=== PATIENT | male | born 1935 | race Caucasian/White ===

== ENCOUNTER 2020-05-20 14:27 | Inpatient (IN) | payer MEDICARE, MEDICAID ==
[2020-05-20] MEDS ORDERED: Sodium Chloride 0.9% 10 ML Syringe FLUSH PRN ×2 (14:28→16:41)
--- NOTE | 2020-05-20 14:38 | EDM.PDOC ---
ED HPI GENERAL MEDICAL PROBLEM - General Chief Complaint: Respiratory Problem Stated Complaint: SOB VIA [facility] Time Seen by Provider: 05/20/20 14:30 Source of Information: Reports: Patient, EMS, Family, Old Records History Limitations: Reports: Other (patient not able to offer any significant hx) - History of Present Illness INITIAL COMMENTS - FREE TEXT/NARRATIVE: 84 yo male with a pHx of COPD presents via EMS for SOB that began today. He arrives via EMS with oxygen per mask. He has not been running a fever. He has a cough, but this is chronic. No known exposures. EMS gave albuterol via neb with transient mild benefit. He apparently has not been eating for the past week. No reported chest pain. Has a pHx of surgery for a AAA. No pHx of CHF. Onset: Gradual Onset Date: 05/14/20 Duration: Week(s): (1 week, much worse breathing today.), Getting Worse Location: Reports: Chest Quality: Reports: Other (no pain) Severity: Moderate Improves with: Reports: Other (oxygen) Worsens with: Reports: Other (unsure) Context: Reports: Other (See HPI) Associated Symptoms: Reports: Cough (chronic), Loss of Appetite, Shortness of Breath. Denies: Chest Pain, Fever/Chills Treatments [employer]: Reports: Oxygen, Other (see below) (albuterol neb) - Related Data Allergies Allergy/AdvReac Type Severity Reaction Status Date / Time venom-honey bee Allergy Anaphylactic Verified 05/20/20 14:34 [bee venom (honey bee)] Shock Home Meds: Home Meds Aspirin [Ecotrin EC] 81 mg PO DAILY 05/11/14 [History] Levothyroxine 112 mcg PO ACBRK 05/11/14 [History] NIFEdipine [Adalat cc] 90 mg PO DAILY 05/11/14 [History] atorvaSTATin [Lipitor] 40 mg PO DAILY 05/11/14 [History] Tamsulosin [Tamsulosin 24 Hr] 0.8 mg PO DAILY 05/20/20 [History] Past Medical History Cardiovascular History: Reports: Aneurysm (Aortic), Hypertension Other Cardiovascular History: Aortic Anuerysm Respiratory History: Reports: SOB Gastrointestinal History: Reports: Bowel Obstruction Musculoskeletal History: Reports: Back Pain, Chronic, Gout Neurological History: Reports: TIA Other Neuro History: Forgetful Endocrine/Metabolic History: Reports: Hypothyroidism, Other (See Below) Other Endocrine/Metabolic History: thyroid disease Dermatologic History: Reports: Decubitus Ulcer - Infectious Disease History Infectious Disease History: Reports: Chicken Pox, Measles, Mumps - Past Surgical History Cardiovascular Surgical History: Reports: AAA Repair ED ROS GENERAL - Review of Systems Review Of Systems: See Below Constitutional: Reports: Malaise, Decreased Appetite. Denies: Fever HEENT: Reports: No Symptoms Respiratory: Reports: Shortness of Breath, Wheezing, Cough. Denies: Pleuritic Chest Pain, Sputum, Hemoptysis Cardiovascular: Reports: No Symptoms Endocrine: Reports: No Symptoms GI/Abdominal: Reports: Anorexia, Decreased Appetite : Reports: No Symptoms Musculoskeletal: Reports: No Symptoms Skin: Reports: No Symptoms Neurological: Reports: No Symptoms Psychiatric: Reports: Other (lethargy) ED EXAM, GENERAL - Physical Exam Exam: See Below Exam Limited By: No Limitations General Appearance: Alert, WD/WN, Mild Distress, Obese Eye Exam: Bilateral Eye: Normal Inspection Ears: Normal External Exam, Normal Canal, Hearing Grossly Normal, Normal TMs Ear Exam: Bilateral Ear: Auricle Normal, Canal Normal, TM normal Nose: Normal Inspection, No Blood Throat/Mouth: Normal Inspection, Normal Lips, Normal Oropharynx, Normal Voice, No Airway Compromise Head: Atraumatic, Normocephalic Neck: Normal Inspection, Supple, Non-Tender Respiratory/Chest: No Accessory Muscle Use, Chest Non-Tender, Respiratory Distress, Rhonchi, Wheezing. No: No Respiratory Distress, Lungs Clear, Normal Breath Sounds, Accessory Muscle Use Cardiovascular: Regular Rate, Rhythm GI/Abdominal: Normal Bowel Sounds, Soft, Non-Tender, No Distention, Other (obese, large ventral surgical scar well healed) Extremities: Normal Inspection, Normal Range of Motion, Non-Tender, Pedal Edema (trace pitting edema of both legs below the knees.). No: No Pedal Edema Neurological: CN II-XII Intact, No Motor/Sensory Deficits, Slow to Respond, Other (lethargic) Psychiatric: Depressed Mood, Flat Affect Skin Exam: Warm, Dry, Intact, Normal Color, No Rash #1 Interpretation EKG Date: 05/20/20 Time: 14:20 Rhythm: A-Fib Rate (Beats/Min): 134 [place]: Normal P-Wave: Absent QRS: Normal ST-T: Normal QT: Prolonged Comparison: Change From Previous EKG (change from NSR to afib with RVR) Course - Vital Signs Text/Narrative:: Dr. Dan called @ 4787h, will see in ER Last Recorded V/S: Last Vital Signs Temp 36.4 C 05/20/20 14:27 Pulse 100 05/20/20 15:07 Resp 24 H 05/20/20 15:07 BP 94/58 L 05/20/20 15:07 Pulse Ox 86 L 05/20/20 15:07 - Orders/Labs/Meds Orders: Active Orders 24 hr Category Date Time Status Cardiac Monitoring [RC] .As Directed Care 05/20/20 14:28 Active EKG Documentation Completion [RC] ASDIRECTED Care 05/20/20 14:28 Active Wynn Catheter Insertion [Insert Urinary Catheter] [OM. Care 05/20/20 15:00 Ordered PC] Q24H Oxygen Therapy Adult [Oxygen Therapy, ED] [RC] Care 05/20/20 14:36 Active ASDIRECTED RT Aerosol Therapy [RC] ASDIRECTED Care 05/20/20 14:59 Active Urinary Catheter Assessment [RC] ASDIRECTED Care 05/20/20 14:59 Active Chest 1V Frontal [CR] Stat Exams 05/20/20 14:28 Taken UA W/MICROSCOPIC [URIN] Stat Lab 05/20/20 14:29 Ordered Sodium Chloride 0.9% [Saline Flush] Med 05/20/20 14:28 Active 10 ml FLUSH ASDIRECTED PRN Saline Lock Insert [OM.PC] Routine Oth 05/20/20 14:28 Ordered EKG 12 Lead [EK] Routine Ther 05/20/20 14:28 Ordered Medication Orders Sodium Chloride (Saline Flush) 10 ml FLUSH ASDIRECTED PRN PRN Reason: Keep Vein Open Labs: Laboratory Tests 05/20/20 05/20/20 05/20/20 Range/Units 14:38 14:40 14:40 WBC 10.7 (4.5-11.0) K/uL RBC 5.00 (4.30-5.90) M/uL Hgb 14.3 D (12.0-15.0) g/dL Hct 47.3 (40.0-54.0) % MCV 95 (80-98) fL MCH 29 (27-31) pg MCHC 30 L (32-36) % Plt Count 311 (150-400) K/uL D-Dimer, Quantitative (0.0-500.0) ng/mL Puncture Site Lt.radial ABG pH 7.261 L (7.350-7.450) ABG pCO2 80.3 H* (35.0-42.0) mmHg ABG pO2 70.8 L (75.0-100.0) mmHg ABG HCO3 34.9 H (22.0-26.0) mmol/L ABG Total CO2 31.8 H (23.0-27.0) mmol/L ABG O2 Saturation 91.4 L (95.0-98.0) % ABG O2 Content 18.0 (15.0-23.0) %vol ABG Base Excess 5.1 mm/L ABG Hemoglobin 14.3 (13.5-18.0) g/dL ABG Oxyhemoglobin 89.5 % ABG Carboxyhemoglobin 1.2 (0.0-1.6) % ABG Methemoglobin 0.9 % Christiano Test Passed O2 Delivery Device Non rebr mask Oxygen Flow Rate 3.0 L Sodium 137 L (140-148) mmol/L Potassium 4.6 (3.6-5.2) mmol/L Chloride 98 L (100-108) mmol/L Carbon Dioxide 34 H (21-32) mmol/L Anion Gap 9.6 (5.0-14.0) mmol/L BUN 17 (7-18) mg/dL Creatinine 1.2 (0.8-1.3) mg/dL Est Cr Clr Drug Dosing TNP Estimated GFR (MDRD) 58 L (>60) Glucose 155 H (74-106) mg/dL Calcium 8.2 L (8.5-10.1) mg/dL Troponin I < 0.017 (0.000-0.056) ng/mL NT-Pro-B Natriuret Pep 4717 H (5-450) pg/mL SARS CoV-2 RNA Rapid ANTONY 05/20/20 05/20/20 Range/Units 14:50 15:00 WBC (4.5-11.0) K/uL RBC (4.30-5.90) M/uL Hgb (12.0-15.0) g/dL Hct (40.0-54.0) % MCV (80-98) fL MCH (27-31) pg MCHC (32-36) % Plt Count (150-400) K/uL D-Dimer, Quantitative 2125.48 H (0.0-500.0) ng/mL Puncture Site ABG pH (7.350-7.450) ABG pCO2 (35.0-42.0) mmHg ABG pO2 (75.0-100.0) mmHg ABG HCO3 (22.0-26.0) mmol/L ABG Total CO2 (23.0-27.0) mmol/L ABG O2 Saturation (95.0-98.0) % ABG O2 Content (15.0-23.0) %vol ABG Base Excess mm/L ABG Hemoglobin (13.5-18.0) g/dL ABG Oxyhemoglobin % ABG Carboxyhemoglobin (0.0-1.6) % ABG Methemoglobin % Christiano Test O2 Delivery Device Oxygen Flow Rate L Sodium (140-148) mmol/L Potassium (3.6-5.2) mmol/L Chloride (100-108) mmol/L Carbon Dioxide (21-32) mmol/L Anion Gap (5.0-14.0) mmol/L BUN (7-18) mg/dL Creatinine (0.8-1.3) mg/dL Est Cr Clr Drug Dosing Estimated GFR (MDRD) (>60) Glucose (74-106) mg/dL Calcium (8.5-10.1) mg/dL Troponin I (0.000-0.056) ng/mL NT-Pro-B Natriuret Pep (5-450) pg/mL SARS CoV-2 RNA Rapid ANTONY Negative Meds: Medications Generic Name Dose Route Start Last Admin Trade Name Freq PRN Reason Stop Dose Admin Sodium Chloride 10 ml 05/20/20 14:28 Saline Flush FLUSH ASDIRECTED PRN Keep Vein Open Discontinued Medications Generic Name Dose Route Start Last Admin Trade Name Freq PRN Reason Stop Dose Admin Albuterol/Ipratropium 3 ml 05/20/20 14:59 Duoneb 3.0-0.5 Mg/3 Ml NEB 05/20/20 15:00 ONETIME ONE Digoxin 500 mcg 05/20/20 14:58 Lanoxin IVPUSH 05/20/20 14:59 ONETIME ONE Furosemide 40 mg 05/20/20 15:19 Lasix IVPUSH 05/20/20 15:20 ONETIME ONE - Radiology Interpretation Free Text/Narrative:: CXR-bilateral pleural effusions Departure - Departure Time of Disposition: 15:50 Disposition: Admitted As Inpatient 66 Condition: Serious Clinical Impression: Pleural effusion, bilateral, Hypoxia, Carbon dioxide retention, Bronchospasm, Atrial fibrillation with RVR - Discharge Information *PRESCRIPTION DRUG MONITORING PROGRAM REVIEWED*: Not Applicable *COPY OF PRESCRIPTION DRUG MONITORING REPORT IN PATIENT LARA: Not Applicable Referrals: PCP,None [Primary Care Provider] - Forms: ED Department Discharge Sepsis Event Note (ED) - Focused Exam Vital Signs: Vital Signs Temp Pulse Resp BP Pulse Ox 05/20/20 15:07 100 24 H 94/58 L 86 L 05/20/20 14:52 138 H 27 H 110/66 87 L 05/20/20 14:27 36.4 C 116 H 25 H 102/72 86 L - My Orders Last 24 Hours: My Active Orders 05/20/20 14:28 Cardiac Monitoring [RC] .As Directed EKG Documentation Completion [RC] ASDIRECTED Chest 1V Frontal [CR] Stat Sodium Chloride 0.9% [Saline Flush] 10 ml FLUSH ASDIRECTED PRN Saline Lock Insert [OM.PC] Routine EKG 12 Lead [EK] Routine 05/20/20 14:29 UA W/MICROSCOPIC [URIN] Stat 05/20/20 14:36 Oxygen Therapy Adult [Oxygen Therapy, ED] [RC] ASDIRECTED 05/20/20 14:59 RT Aerosol Therapy [RC] ASDIRECTED Urinary Catheter Assessment [RC] ASDIRECTED 05/20/20 15:00 Wynn Catheter Insertion [Insert Urinary Catheter] [OM.PC] Q24H - Assessment/Plan Last 24 Hours: My Active Orders 05/20/20 14:28 Cardiac Monitoring [RC] .As Directed EKG Documentation Completion [RC] ASDIRECTED Chest 1V Frontal [CR] Stat Sodium Chloride 0.9% [Saline Flush] 10 ml FLUSH ASDIRECTED PRN Saline Lock Insert [OM.PC] Routine EKG 12 Lead [EK] Routine 05/20/20 14:29 UA W/MICROSCOPIC [URIN] Stat 05/20/20 14:36 Oxygen Therapy Adult [Oxygen Therapy, ED] [RC] ASDIRECTED 05/20/20 14:59 RT Aerosol Therapy [RC] ASDIRECTED Urinary Catheter Assessment [RC] ASDIRECTED 05/20/20 15:00 Wynn Catheter Insertion [Insert Urinary Catheter] [OM.PC] Q24H
[2020-05-20] MEDS ORDERED: Digoxin 500 MCG/2 ML Amp IVPUSH ONE (14:58)
[2020-05-20] MEDS ORDERED: Albuterol/Ipratropium 3.0-0.5 MG/3 ML Neb Soln NEB ONE (14:59)
[2020-05-20] MEDS ORDERED: Furosemide 40 MG/4 ML VIAL IVPUSH ONE (15:19)
[2020-05-20] MEDS ORDERED: Iopamidol 612 MG/ML 100 ML Bottle IV SCH (15:45)
--- NOTE | 2020-05-20 15:45 | PCM.HP.2 ---
H&P History of Present Illness - General Date of Service: 05/20/20 Admit Problem/Dx: Admission Diagnosis/Problem Admission Diagnosis/Problem Hypoxia Source of Information: Patient, Provider, RN Notes Reviewed History Limitations: Reports: No Limitations - History of Present Illness Initial Comments - Free Text/Narative: Mr. Moreau and through the emergency department with increased shortness of breath secondary to acute on chronic hypoxic and hypercapnic respiratory failure. He has a known history of COPD and is on supplemental oxygen 3 L/min via nasal cannula at home. He reports that he has become progressively more short of breath over the last month but it has been significantly worse this week. He has had a productive cough but denies fever or chills. Because of severe shortness of breath today he presented to the emergency department for further evaluation and was brought in by EMS. On arrival he had good oxygenation on supplemental oxygen, but blood gases did show significant hypercapnia with associated respiratory acidosis. Chest x-ray shows hypoventilation with bilateral pleural effusions. He was also found to be in atrial fibrillation with rapid ventricular response and has no prior history of this that he is aware of. He has received IV furosemide and IV digoxin while in the emergency department. Follow-up blood gases show persistent although improved hypercapnia with an oxygen saturation of 88%. - Related Data Allergies/Adverse Reactions: Allergies Allergy/AdvReac Type Severity Reaction Status Date / Time venom-honey bee Allergy Anaphylactic Verified 05/20/20 14:34 [bee venom (honey bee)] Shock Home Medications: Home Meds Aspirin [Ecotrin EC] 81 mg PO DAILY 05/11/14 [History] Levothyroxine 112 mcg PO ACBRK 05/11/14 [History] NIFEdipine [Adalat cc] 90 mg PO DAILY 05/11/14 [History] atorvaSTATin [Lipitor] 40 mg PO DAILY 05/11/14 [History] Tamsulosin [Tamsulosin 24 Hr] 0.8 mg PO DAILY 05/20/20 [History] Past Medical History HEENT History: Reports: Impaired Vision Cardiovascular History: Reports: Aneurysm, High Cholesterol, Hypertension Other Cardiovascular History: Aortic Anuerysm Respiratory History: Reports: COPD, SOB, Other (See Below) Other Respiratory History: Continuous O2 at 3l Gastrointestinal History: Reports: Bowel Obstruction Musculoskeletal History: Reports: Back Pain, Chronic, Gout Neurological History: Reports: TIA Other Neuro History: Forgetful Psychiatric History: Reports: Depression Endocrine/Metabolic History: Reports: Hypothyroidism, Other (See Below) Other Endocrine/Metabolic History: thyroid disease Dermatologic History: Reports: Decubitus Ulcer - Infectious Disease History Infectious Disease History: Reports: Chicken Pox, Measles, Mumps - Past Surgical History HEENT Surgical History: Reports: Tonsillectomy Cardiovascular Surgical History: Reports: AAA Repair GI Surgical History: Reports: Colon Social & Family History - Tobacco Use Tobacco Use Status *Q: Former Tobacco User Years of Tobacco use: 60 Packs/Tins Daily: 1 Used Tobacco, but Quit: Yes Month/Year Tobacco Last Used: 1963 Second Hand Smoke Exposure: No - Caffeine Use Caffeine Use: Reports: Coffee - Alcohol Use Days Per Week of Alcohol Use: 0 - Recreational Drug Use Recreational Drug Use: No H&P Review of Systems - Review of Systems: Review Of Systems: See Below General: Reports: Malaise, Weakness, Fatigue, Decreased Appetite. Denies: Fever, Chills HEENT: Reports: No Symptoms Pulmonary: Reports: Shortness of Breath, Wheezing, Cough, Sputum. Denies: Pleuritic Chest Pain, Hemoptysis Cardiovascular: Reports: Dyspnea on Exertion. Denies: Chest Pain, Palpitations, Orthopnea, PND, Edema, Lightheadedness Gastrointestinal: Reports: No Symptoms Genitourinary: Reports: No Symptoms Musculoskeletal: Reports: No Symptoms Skin: Reports: Erythema (In the groin right greater than left) Psychiatric: Reports: No Symptoms Neurological: Reports: No Symptoms Hematologic/Lymphatic: Reports: No Symptoms Immunologic: Reports: No Symptoms Exam - Exam Exam: See Below - Vital Signs Vital Signs: Last Vital Signs Temp 97.5 F 05/20/20 14:27 Pulse 121 H 05/20/20 15:39 Resp 24 H 05/20/20 15:07 BP 94/58 L 05/20/20 15:07 Pulse Ox 86 L 05/20/20 15:07 Weight: 218 lb - Exam Quality Assessment: Supplemental Oxygen, DVT Prophylaxis General: Alert, Oriented, Cooperative, Moderate Distress HEENT: Conjunctiva Clear, Hearing Intact, Mucosa Moist & [place], Normal Nasal Se ptum, Posterior Pharynx Clear, Pupils Equal Neck: Supple, Trachea Midline, +2 Carotid Pulse wo Bruit Lungs: Decreased Breath Sounds, Rhonchi, Wheezing. No: Crackles, Rales Cardiovascular: Normal S1, Normal S2, Irregular Rhythm, Tachycardia. No: Systolic Murmur, Diastolic Murmur GI/Abdominal Exam: Soft, Non-Tender, No Organomegaly, No Distention Extremities: Non-Tender, No Pedal Edema Skin: Rash (Erythema groin consistent with yeast dermatitis) Neurological: Cranial Nerves Intact, Strength Equal Bilateral, Normal Speech, Normal Tone, Sensation Intact. No: Focal Deficit Neuro Extensive - Mental Status: Alert, Oriented x3, Normal Mood/Affect, Normal Cognition, Memory Intact - Patient Data Lab Results Last 24 hrs: Laboratory Results - last 24 hr 05/20/20 05/20/20 05/20/20 Range/Units 14:38 14:40 14:40 WBC 10.7 (4.5-11.0) K/uL RBC 5.00 (4.30-5.90) M/uL Hgb 14.3 D (12.0-15.0) g/dL Hct 47.3 (40.0-54.0) % MCV 95 (80-98) fL MCH 29 (27-31) pg MCHC 30 L (32-36) % Plt Count 311 (150-400) K/uL D-Dimer, Quantitative (0.0-500.0) ng/mL Puncture Site Lt.radial ABG pH 7.261 L (7.350-7.450) ABG pCO2 80.3 H* (35.0-42.0) mmHg ABG pO2 70.8 L (75.0-100.0) mmHg ABG HCO3 34.9 H (22.0-26.0) mmol/L ABG Total CO2 31.8 H (23.0-27.0) mmol/L ABG O2 Saturation 91.4 L (95.0-98.0) % ABG O2 Content 18.0 (15.0-23.0) %vol ABG Base Excess 5.1 mm/L ABG Hemoglobin 14.3 (13.5-18.0) g/dL ABG Oxyhemoglobin 89.5 % ABG Carboxyhemoglobin 1.2 (0.0-1.6) % ABG Methemoglobin 0.9 % Christiano Test Passed O2 Delivery Device Non rebr mask Oxygen Flow Rate 3.0 L Sodium 137 L (140-148) mmol/L Potassium 4.6 (3.6-5.2) mmol/L Chloride 98 L (100-108) mmol/L Carbon Dioxide 34 H (21-32) mmol/L Anion Gap 9.6 (5.0-14.0) mmol/L BUN 17 (7-18) mg/dL Creatinine 1.2 (0.8-1.3) mg/dL Est Cr Clr Drug Dosing TNP Estimated GFR (MDRD) 58 L (>60) Glucose 155 H (74-106) mg/dL Calcium 8.2 L (8.5-10.1) mg/dL Troponin I < 0.017 (0.000-0.056) ng/mL NT-Pro-B Natriuret Pep 4717 H (5-450) pg/mL SARS CoV-2 RNA Rapid ANTONY 05/20/20 05/20/20 Range/Units 14:50 15:00 WBC (4.5-11.0) K/uL RBC (4.30-5.90) M/uL Hgb (12.0-15.0) g/dL Hct (40.0-54.0) % MCV (80-98) fL MCH (27-31) pg MCHC (32-36) % Plt Count (150-400) K/uL D-Dimer, Quantitative 2125.48 H (0.0-500.0) ng/mL Puncture Site ABG pH (7.350-7.450) ABG pCO2 (35.0-42.0) mmHg ABG pO2 (75.0-100.0) mmHg ABG HCO3 (22.0-26.0) mmol/L ABG Total CO2 (23.0-27.0) mmol/L ABG O2 Saturation (95.0-98.0) % ABG O2 Content (15.0-23.0) %vol ABG Base Excess mm/L ABG Hemoglobin (13.5-18.0) g/dL ABG Oxyhemoglobin % ABG Carboxyhemoglobin (0.0-1.6) % ABG Methemoglobin % Christiano Test O2 Delivery Device Oxygen Flow Rate L Sodium (140-148) mmol/L Potassium (3.6-5.2) mmol/L Chloride (100-108) mmol/L Carbon Dioxide (21-32) mmol/L Anion Gap (5.0-14.0) mmol/L BUN (7-18) mg/dL Creatinine (0.8-1.3) mg/dL Est Cr Clr Drug Dosing Estimated GFR (MDRD) (>60) Glucose (74-106) mg/dL Calcium (8.5-10.1) mg/dL Troponin I (0.000-0.056) ng/mL NT-Pro-B Natriuret Pep (5-450) pg/mL SARS CoV-2 RNA Rapid ANTONY Negative Result Diagrams: 05/20/20 14:40 05/20/20 14:40 Sepsis Event Note - Focused Exam Vital Signs: Vital Signs Temp Pulse Pulse Resp BP Pulse Ox 05/20/20 15:39 121 H 05/20/20 15:07 100 24 H 94/58 L 86 L 05/20/20 14:52 138 H 27 H 110/66 87 L 05/20/20 14:27 97.5 F 116 H 25 H 102/72 86 L *Q Meaningful Use (ADM) - VTE Risk Assess *Q Each Risk Factor Represents 1 Point: Obesity ( BMI > 25 kg/m2), Abnormal Pulmonary Function (COPD) Total Score 1 Point Risk Factors: 2 Each Risk Factor Represents 2 Points: None Total Score 2 Point Risk Factors: 0 Each Risk Factor Represents 3 Points: Age 75 Years or Greater Total Score 3 Point Risk Factors: 3 Each Risk Factor Represents 5 Points: None Total Score 5 Point Risk Factors: 0 Venous Thromboembolism Risk Factor Score *Q: 5 Problem List Initiated/Reviewed/Updated: Yes Orders Last 24hrs: Active Orders 24 hr Category Date Time Status Patient Status Manage Transfer [TRANSFER] Routine ADT 05/20/20 15:38 Ordered Cardiac Monitoring [RC] .As Directed Care 05/20/20 14:28 Active EKG Documentation Completion [RC] ASDIRECTED Care 05/20/20 14:28 Active Wynn Catheter Insertion [Insert Urinary Catheter] [OM. Care 05/20/20 15:00 Ordered PC] Q24H Oxygen Therapy Adult [Oxygen Therapy, ED] [RC] Care 05/20/20 14:36 Active ASDIRECTED RT Aerosol Therapy [RC] ASDIRECTED Care 05/20/20 14:59 Active Urinary Catheter Assessment [RC] ASDIRECTED Care 05/20/20 14:59 Active Ang Chest [CT] Stat Exams 05/20/20 15:37 Ordered Chest 1V Frontal [CR] Stat Exams 05/20/20 14:28 Taken BLOOD GAS ARTERIAL [BG] Stat Lab 05/20/20 15:35 Ordered UA W/MICROSCOPIC [URIN] Stat Lab 05/20/20 14:29 Ordered Iopamidol [Isovue-300 (61%)] Med 05/20/20 15:45 Ordered 100 ml IV . DIRECTED Sodium Chloride 0.9% [Normal Saline] 100 ml Med 05/20/20 15:45 Ordered IV ASDIRECTED Sodium Chloride 0.9% [Saline Flush] Med 05/20/20 14:28 Active 10 ml FLUSH ASDIRECTED PRN Sodium Chloride 0.9% [Saline Flush] Med 05/20/20 15:42 Once 10 ml FLUSH ONETIME ONE Saline Lock Insert [OM.PC] Routine Oth 05/20/20 14:28 Ordered Resuscitation Status Routine Resus Stat 05/20/20 15:40 Ordered EKG 12 Lead [EK] Routine Ther 05/20/20 14:28 Ordered Medication Orders Sodium Chloride (Normal Saline) 100 mls @ 3 mls/sec IV ASDIRECTED MARIVEL Iopamidol (Isovue-300 (61%)) 100 ml IV . DIRECTED MARIVEL Sodium Chloride (Saline Flush) 10 ml FLUSH ASDIRECTED PRN PRN Reason: Keep Vein Open Sodium Chloride (Saline Flush) 10 ml FLUSH ONETIME ONE Stop: 05/20/20 15:43 Assessment/Plan Comment:: ASSESSMENT AND PLAN ACUTE ON CHRONIC HYPOXIC AND HYPERCAPNIC RESPIRATORY FAILURE-history of progressive dyspnea over the past month, significantly worse over the past few days. Does have underlying COPD on supplemental oxygen 3 L/min via nasal cannula. Bilateral pleural effusions noted on chest x-ray, no prior history of congestive heart failure. Likely is experiencing COPD exacerbation with bilateral expiratory wheezes noted on exam. Question underlying pulmonary edema versus infection. -CT angiogram of the chest, rule out PE evaluate for infiltrate versus edema -BiPAP and supplemental oxygen, maintain saturations in the range of 88 to 91% -Follow-up arterial blood gases with BiPAP and in a.m. -IV furosemide given in the ED, reassess in a.m. -Nebulizer therapy with albuterol and DuoNebs -Solu-Medrol 40 mg IV every 6 hours -Blood cultures pending -Echocardiogram to assess for left ventricular function and valvular status -IV Zosyn and levofloxacin, pending culture results and CT scan COPD-probable exacerbation -Management as above ATRIAL FIBRILLATION WITH RAPID VENTRICULAR RESPONSE-likely secondary to respiratory compromise, question underlying heart failure. Control improved with use of digoxin in the emergency department. Borderline blood pressure precludes use of beta-blockers or diltiazem at the present time -Echo as above -Digoxin level in a.m. -Consider long-term anticoagulation PALLIATIVE CARE-he does not want intubation or mechanical ventilation if he experiences further respiratory compromise. In the event of progressive respiratory failure he would like to be kept comfortable. MAINTENANCE ISSUES -DVT prophylaxis; Lovenox 40 mg subcu daily -GI prophylaxis; not indicated -Wynn catheter; not indicated -Nutrition; 2 g sodium diet -Nicotine dependence; not required CODE STATUS-DNR/DNI ADMISSION STATUS-patient will be admitted to inpatient status, expect at least a 2 night hospital stay for evaluation and management of problems as outlined above. At the time of this admission I do not reasonably expected evaluation and management of this problem will require more than a 96 hour hospital stay. DISPOSITION-anticipate discharge to home after the hospital stay. - Mortality Measure Prognosis:: Poor
[2020-05-20] MEDS: Sodium Chloride 0.9% 10 ML Syringe FLUSH ONE ×2 (15:46→15:56)
[2020-05-20] MEDS ORDERED: Polyethylene Glycol 3350 Powder 17 GM Packet PO PRN (16:41)
[2020-05-20] MEDS ORDERED: Acetaminophen 325 MG Tab PO PRN (16:41)
[2020-05-20] MEDS ORDERED: Ondansetron 4 MG/2 ML SDV IV PRN (16:41)
[2020-05-20] MEDS ORDERED: Albuterol 0.083% 2.5 MG/3 ML Neb Soln NEB PRN (16:41)
[2020-05-20] MEDS ORDERED: Enoxaparin 40 MG/0.4 ML Syringe SUBCUT SCH (17:00)
[2020-05-20] MEDS ORDERED: Levofloxacin/Dextrose 5%-Water 750 MG in Premix Bag 1 BAG IV SCH (17:00)
[2020-05-20] MEDS: Sodium Chloride 0.9% 100 ML IV SCH ×2 (17:09→18:40)
[2020-05-20] MEDS ORDERED: Iopamidol 755 Mg/ML 100 ML Bottle IV SCH (17:15)
[2020-05-20] MEDS: Lactobacillus Rhamnosus GG (Probiotic) Cap PO SCH ×2 (17:26→21:25)
[2020-05-20] MEDS: Albuterol/Ipratropium 3.0-0.5 MG/3 ML Neb Soln NEB SCH ×2 (17:27→21:25)
[2020-05-20] MEDS: methylPREDNISolone Sodium Succinate 40 MG/1 ML SDV IVPUSH SCH ×2 (17:27→21:25)
[2020-05-20] MEDS: Piperacillin/Tazobactam/Dext 3.375 GM in Premix Bag 1 BAG IV SCH ×2 (17:28→21:25)
[2020-05-20] MEDS: Nystatin Topical Powder 15 GM Bottle TOP SCH ×2 (17:40→21:25)
--- NOTE | 2020-05-20 17:54 | CRLCT ---
INDICATION: Hypoxic and hypercapnic respiratory failure TECHNIQUE: Contrast enhanced axial CT imaging through the chest, optimized for assessment of the pulmonary arterial tree. 100 mL Isovue 370 contrast agent was administered intravenously. Sagittal and coronal reconstructions are provided. COMPARISON: None FINDINGS: There is adequate opacification of the pulmonary arterial tree without evidence of thromboembolism. The main pulmonary artery is nonenlarged. There is mild cardiomegaly. There is no pericardial effusion. The ascending thoracic aorta is ectatic, measuring up to 4.5 cm in diameter. There is mild mediastinal lymphadenopathy. There are moderate-sized bilateral pleural effusions, slightly larger on the right. Moderate compressive atelectasis is noted in the lung bases. There is also patchy consolidation involving the posterior right upper lobe. The thoracic osseous structures are unremarkable. No significant abnormality is demonstrated in the visualized upper abdomen. IMPRESSION: 1. Moderate-sized bilateral pleural effusions, slightly larger on the right. Moderate bibasilar atelectasis. Mild cardiomegaly. 2. Patchy posterior right upper lobe consolidation, concerning for pneumonia. Correlate clinically. 3. No evidence of pulmonary thromboembolism. 4. 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 Please note that all CT scans at this facility use dose modulation, iterative reconstruction, and/or weight-based dosing when appropriate to reduce radiation dose to as low as reasonably achievable. Dictated by Connie Henson MD @ May 20 2020 5:38PM Signed by Dr. Connie Henson @ May 20 2020 5:53PM
[2020-05-20] MEDS ORDERED: Diltiazem 100 MG in Sodium Chloride 0.9% 100 ML IV SCH (23:45)
[2020-05-20] MEDS ORDERED: Diltiazem 25 MG/5 ML SDV IVPUSH ONE (23:55)
[2020-05-21] MEDS ORDERED: Sodium Chloride 0.9% 250 ML IV SCH (00:30)
[2020-05-21] MEDS: methylPREDNISolone Sodium Succinate 40 MG/1 ML SDV IVPUSH SCH ×2 (03:43→10:07)
[2020-05-21] MEDS: Piperacillin/Tazobactam/Dext 3.375 GM in Premix Bag 1 BAG IV SCH ×2 (03:43→09:52)
[2020-05-21] MEDS: Nystatin Topical Powder 15 GM Bottle TOP SCH ×2 (06:05→09:52)
[2020-05-21] MEDS: Albuterol/Ipratropium 3.0-0.5 MG/3 ML Neb Soln NEB SCH ×2 (07:11→10:39)
[2020-05-21] MEDS ORDERED: Levothyroxine 112 MCG Tab PO SCH (07:30)
[2020-05-21] MEDS: Lactobacillus Rhamnosus GG (Probiotic) Cap PO SCH (08:12)
[2020-05-21] MEDS ORDERED: atorvaSTATin 20 MG Tab PO SCH (09:00)
[2020-05-21] MEDS ORDERED: Aspirin 81 MG Tab.EC PO SCH (09:00)
[2020-05-21] MEDS ORDERED: Tamsulosin 0.4 MG Cap.ER PO SCH (09:00)
--- NOTE | 2020-05-21 09:02 | CR ---
CHEST: Portable 05/20/2020 at 2:49 PM CLINICAL HISTORY:SOB COMPARISON:2014 FINDINGS: The heart is enlarged. Pulmonary vascular is mildly cephalized. There are bilateral pleural effusions. There are atherosclerotic changes in the aorta. There is some mild generalized interstitial prominence in the perihilar and lower lung regions. Impression: Cardiomegaly with mild vascular cephalization and bilateral pleural effusions suggests some CHF. There is some infiltrate or edema in the perihilar lower lobe regions greater on the right. Superimposed pneumonia or pneumonitis is not excluded.
--- NOTE | 2020-05-21 09:39 | PCM.PN ---
- General Info Date of Service: 05/21/20 Subjective Update: Mr. Moreau has improved significantly since admission and reports less shortness of breath. He has been on noninvasive positive pressure ventilation and he is hypercapnia has essentially resolved. We have attempted to maintain oxygen saturations in the range of 88 to 92%. [address] scan of the chest showed no evidence of pulmonary embolism, did document bilateral pleural effusions as well as a right lung infiltrate. Echocardiogram is ordered and pending this morning. He would like to be discharged home and I did explain to them that he is not medically ready for that yet, he is considering leaving AGAINST MEDICAL ADVICE. Functional Status: Reports: Tolerating Diet, Urinating - Review of Systems General: Reports: Weakness, Fatigue. Denies: Fever, Chills Pulmonary: Reports: Shortness of Breath, Cough, Sputum, Wheezing. Denies: Pleuritic Chest Pain, Hemoptysis Cardiovascular: Reports: Dyspnea on Exertion. Denies: Chest Pain, Palpitations, Orthopnea, PND, Edema, Lightheadedness Gastrointestinal: Reports: No Symptoms Genitourinary: Reports: No Symptoms - Patient Data Vitals - Most Recent: Last Vital Signs Temp 97.7 F 05/21/20 07:42 Pulse 82 05/21/20 09:00 Resp 20 05/21/20 09:00 BP 118/46 L 05/21/20 09:00 Pulse Ox 87 L 05/21/20 09:00 Weight - Most Recent: 229 lb 0.964 oz I&O - Last 24 Hours: Intake & Output 05/20/20 05/21/20 05/21/20 22:59 06:59 14:59 Intake Total 120 575 480 Output Total 220 175 Balance 120 355 305 Lab Results Last 24 Hours: Laboratory Results - last 24 hr 05/20/20 05/20/20 05/20/20 Range/Units 06:33 14:38 14:40 WBC 10.7 (4.5-11.0) K/uL RBC 5.00 (4.30-5.90) M/uL Hgb 14.3 D (12.0-15.0) g/dL Hct 47.3 (40.0-54.0) % MCV 95 (80-98) fL MCH 29 (27-31) pg MCHC 30 L (32-36) % Plt Count 311 (150-400) K/uL Neut % (Auto) (36-66) % Lymph % (Auto) (24-44) % [place] % (Auto) (2-6) % Eos % (Auto) (2-4) % Baso % (Auto) (0-1) % D-Dimer, Quantitative (0.0-500.0) ng/mL Puncture Site Lt radial Lt.radial ABG pH 7.350 7.261 L (7.350-7.450) ABG pCO2 65.6 H 80.3 H* (35.0-42.0) mmHg ABG pO2 58.0 L 70.8 L (75.0-100.0) mmHg ABG HCO3 35.3 H 34.9 H (22.0-26.0) mmol/L ABG Total CO2 31.7 H 31.8 H (23.0-27.0) mmol/L ABG O2 Saturation 89.1 L 91.4 L (95.0-98.0) % ABG O2 Content 16.6 18.0 (15.0-23.0) %vol ABG Base Excess 7.7 5.1 mm/L ABG Hemoglobin 13.6 14.3 (13.5-18.0) g/dL ABG Oxyhemoglobin 87.1 89.5 % ABG Carboxyhemoglobin 1.4 1.2 (0.0-1.6) % ABG Methemoglobin 0.9 0.9 % Christiano Test Passed Passed O2 Delivery Device Bipap Non rebr mask Oxygen Flow Rate 30.0 3.0 L Sodium (140-148) mmol/L Potassium (3.6-5.2) mmol/L Chloride (100-108) mmol/L Carbon Dioxide (21-32) mmol/L Anion Gap (5.0-14.0) mmol/L BUN (7-18) mg/dL Creatinine (0.8-1.3) mg/dL Est Cr Clr Drug Dosing Estimated GFR (MDRD) (>60) Glucose (74-106) mg/dL Calcium (8.5-10.1) mg/dL Magnesium (1.8-2.4) mg/dL Total Bilirubin (0.2-1.0) mg/dL AST (15-37) U/L ALT (12-78) U/L Alkaline Phosphatase (46-116) U/L Troponin I (0.000-0.056) ng/mL NT-Pro-B Natriuret Pep (5-450) pg/mL Total Protein (6.4-8.2) g/dL Albumin (3.4-5.0) g/dL Globulin (2.3-3.5) g/dL Albumin/Globulin Ratio (1.2-2.2) Digoxin (0.90-2.00) ng/mL SARS CoV-2 RNA Rapid ANTONY 05/20/20 05/20/20 05/20/20 Range/Units 14:40 14:50 15:00 WBC (4.5-11.0) K/uL RBC (4.30-5.90) M/uL Hgb (12.0-15.0) g/dL Hct (40.0-54.0) % MCV (80-98) fL MCH (27-31) pg MCHC (32-36) % Plt Count (150-400) K/uL Neut % (Auto) (36-66) % Lymph % (Auto) (24-44) % [place] % (Auto) (2-6) % Eos % (Auto) (2-4) % Baso % (Auto) (0-1) % D-Dimer, Quantitative 2125.48 H (0.0-500.0) ng/mL Puncture Site ABG pH (7.350-7.450) ABG pCO2 (35.0-42.0) mmHg ABG pO2 (75.0-100.0) mmHg ABG HCO3 (22.0-26.0) mmol/L ABG Total CO2 (23.0-27.0) mmol/L ABG O2 Saturation (95.0-98.0) % ABG O2 Content (15.0-23.0) %vol ABG Base Excess mm/L ABG Hemoglobin (13.5-18.0) g/dL ABG Oxyhemoglobin % ABG Carboxyhemoglobin (0.0-1.6) % ABG Methemoglobin % Christiano Test O2 Delivery Device Oxygen Flow Rate L Sodium 137 L (140-148) mmol/L Potassium 4.6 (3.6-5.2) mmol/L Chloride 98 L (100-108) mmol/L Carbon Dioxide 34 H (21-32) mmol/L Anion Gap 9.6 (5.0-14.0) mmol/L BUN 17 (7-18) mg/dL Creatinine 1.2 (0.8-1.3) mg/dL Est Cr Clr Drug Dosing TNP Estimated GFR (MDRD) 58 L (>60) Glucose 155 H (74-106) mg/dL Calcium 8.2 L (8.5-10.1) mg/dL Magnesium (1.8-2.4) mg/dL Total Bilirubin (0.2-1.0) mg/dL AST (15-37) U/L ALT (12-78) U/L Alkaline Phosphatase (46-116) U/L Troponin I < 0.017 (0.000-0.056) ng/mL NT-Pro-B Natriuret Pep 4717 H (5-450) pg/mL Total Protein (6.4-8.2) g/dL Albumin (3.4-5.0) g/dL Globulin (2.3-3.5) g/dL Albumin/Globulin Ratio (1.2-2.2) Digoxin (0.90-2.00) ng/mL SARS CoV-2 RNA Rapid ANTONY Negative 05/20/20 05/21/20 05/21/20 Range/Units 15:35 05:35 05:35 WBC 4.9 (4.5-11.0) K/uL RBC 4.53 (4.30-5.90) M/uL Hgb 13.3 (12.0-15.0) g/dL Hct 42.3 (40.0-54.0) % MCV 93 (80-98) fL MCH 29 (27-31) pg MCHC 31 L (32-36) % Plt Count 259 (150-400) K/uL Neut % (Auto) 93 H (36-66) % Lymph % (Auto) 6 L (24-44) % [place] % (Auto) 1 L (2-6) % Eos % (Auto) 0 L (2-4) % Baso % (Auto) 0 (0-1) % D-Dimer, Quantitative (0.0-500.0) ng/mL Puncture Site Rt.radial ABG pH 7.278 L (7.350-7.450) ABG pCO2 73.9 H* (35.0-42.0) mmHg ABG pO2 52.8 L (75.0-100.0) mmHg ABG HCO3 33.5 H (22.0-26.0) mmol/L ABG Total CO2 30.4 H (23.0-27.0) mmol/L ABG O2 Saturation 82.6 L (95.0-98.0) % ABG O2 Content 16.1 (15.0-23.0) %vol ABG Base Excess 4.4 mm/L ABG Hemoglobin 14.2 (13.5-18.0) g/dL ABG Oxyhemoglobin 80.8 % ABG Carboxyhemoglobin 1.4 (0.0-1.6) % ABG Methemoglobin 0.8 % Christiano Test Passed O2 Delivery Device Nasal cannula Oxygen Flow Rate 3.0 L Sodium (140-148) mmol/L Potassium (3.6-5.2) mmol/L Chloride (100-108) mmol/L Carbon Dioxide (21-32) mmol/L Anion Gap (5.0-14.0) mmol/L BUN (7-18) mg/dL Creatinine (0.8-1.3) mg/dL Est Cr Clr Drug Dosing Estimated GFR (MDRD) (>60) Glucose (74-106) mg/dL Calcium (8.5-10.1) mg/dL Magnesium (1.8-2.4) mg/dL Total Bilirubin (0.2-1.0) mg/dL AST (15-37) U/L ALT (12-78) U/L Alkaline Phosphatase (46-116) U/L Troponin I (0.000-0.056) ng/mL NT-Pro-B Natriuret Pep (5-450) pg/mL Total Protein (6.4-8.2) g/dL Albumin (3.4-5.0) g/dL Globulin (2.3-3.5) g/dL Albumin/Globulin Ratio (1.2-2.2) Digoxin 1.12 (0.90-2.00) ng/mL SARS CoV-2 RNA Rapid ANTONY 05/21/20 05/21/20 Range/Units 05:35 06:33 WBC (4.5-11.0) K/uL RBC (4.30-5.90) M/uL Hgb (12.0-15.0) g/dL Hct (40.0-54.0) % MCV (80-98) fL MCH (27-31) pg MCHC (32-36) % Plt Count (150-400) K/uL Neut % (Auto) (36-66) % Lymph % (Auto) (24-44) % [place] % (Auto) (2-6) % Eos % (Auto) (2-4) % Baso % (Auto) (0-1) % D-Dimer, Quantitative (0.0-500.0) ng/mL Puncture Site L radial ABG pH 7.463 H (7.350-7.450) ABG pCO2 44.5 H (35.0-42.0) mmHg ABG pO2 55.7 L (75.0-100.0) mmHg ABG HCO3 31.4 H (22.0-26.0) mmol/L ABG Total CO2 27.6 H (23.0-27.0) mmol/L ABG O2 Saturation 90.8 L (95.0-98.0) % ABG O2 Content 16.7 (15.0-23.0) %vol ABG Base Excess 7.1 mm/L ABG Hemoglobin 13.5 (13.5-18.0) g/dL ABG Oxyhemoglobin 88.2 % ABG Carboxyhemoglobin 2.0 H (0.0-1.6) % ABG Methemoglobin 0.9 % Christiano Test Pass O2 Delivery Device Nasal cannula Oxygen Flow Rate 3.0 L Sodium 137 L (140-148) mmol/L Potassium 4.6 (3.6-5.2) mmol/L Chloride 98 L (100-108) mmol/L Carbon Dioxide 30 (21-32) mmol/L Anion Gap 13.6 (5.0-14.0) mmol/L BUN 16 (7-18) mg/dL Creatinine 1.4 H (0.8-1.3) mg/dL Est Cr Clr Drug Dosing 34.12 Estimated GFR (MDRD) 48 L (>60) Glucose 145 H (74-106) mg/dL Calcium 8.0 L (8.5-10.1) mg/dL Magnesium 2.4 (1.8-2.4) mg/dL Total Bilirubin 0.7 (0.2-1.0) mg/dL AST 10 L (15-37) U/L ALT 21 (12-78) U/L Alkaline Phosphatase 73 (46-116) U/L Troponin I (0.000-0.056) ng/mL NT-Pro-B Natriuret Pep (5-450) pg/mL Total Protein 6.5 (6.4-8.2) g/dL Albumin 2.8 L (3.4-5.0) g/dL Globulin 3.7 H (2.3-3.5) g/dL Albumin/Globulin Ratio 0.8 L (1.2-2.2) Digoxin (0.90-2.00) ng/mL SARS CoV-2 RNA Rapid ANTONY Med Orders - Current: Current Medications Acetaminophen (Tylenol) 650 mg PO Q4H PRN PRN Reason: Pain (Mild 1-3)/fever Albuterol (Proventil Neb Soln) 2.5 mg NEB Q4H PRN PRN Reason: Shortness Of Breath/wheezing Last Admin: 05/21/20 00:46 Dose: 2.5 mg Documented by: Albuterol/Ipratropium (Duoneb 3.0-0.5 Mg/3 Ml) 3 ml NEB QIDRT [facility] Last Admin: 05/21/20 07:11 Dose: 3 ml Documented by: Aspirin (Halfprin) 81 mg PO DAILY [facility] Last Admin: 05/21/20 08:12 Dose: 81 mg Documented by: Atorvastatin Calcium (Lipitor) 40 mg PO DAILY [facility] Last Admin: 05/21/20 08:12 Dose: 40 mg Documented by: Diltiazem HCl (Cardizem) 30 mg PO Q6H [facility] Enoxaparin Sodium (Lovenox) 40 mg SUBCUT Q24H [facility] Last Admin: 05/20/20 17:27 Dose: 40 mg Documented by: Piperacillin/Tazobactam/ (Dextrose 3.375 gm/ Premix) 50 mls @ 100 mls/hr IV Q6H [facility] Last Admin: 05/21/20 03:43 Dose: 100 mls/hr Documented by: Sodium Chloride (Normal Saline) 250 mls @ 15 mls/hr IV ASDIRECTED [facility] Last Admin: 05/21/20 00:50 Dose: 15 mls/hr Documented by: Levofloxacin/Dextrose 750 mg/ (Premix) 150 mls @ 100 mls/hr IV Q48H [facility] Lactobacillus Rhamnosus (Culturelle) 1 cap PO BID [facility] Last Admin: 05/21/20 08:12 Dose: 1 cap Documented by: Levothyroxine Sodium (Levothyroxine) 112 mcg PO ACBREAKFAST [facility] Last Admin: 05/21/20 08:12 Dose: 112 mcg Documented by: Methylprednisolone Sodium Succinate (Solu-Medrol) 40 mg IVPUSH Q6H [facility] Last Admin: 05/21/20 03:43 Dose: 40 mg Documented by: Nystatin (Nystop) 0 gm TOP QID [facility] Last Admin: 05/21/20 06:05 Dose: 1 gm Documented by: Ondansetron HCl (Zofran) 4 mg IV Q4H PRN PRN Reason: Nausea/Vomiting Polyethylene Glycol (Miralax) 17 gm PO DAILY PRN PRN Reason: Constipation Sodium Chloride (Saline Flush) 10 ml FLUSH ASDIRECTED PRN PRN Reason: Keep Vein Open Last Admin: 05/20/20 18:40 Dose: 10 ml Documented by: Tamsulosin HCl (Flomax) 0.8 mg PO DAILY [facility] Last Admin: 05/21/20 08:12 Dose: 0.8 mg Documented by: Discontinued Medications Albuterol/Ipratropium (Duoneb 3.0-0.5 Mg/3 Ml) 3 ml NEB ONETIME ONE Stop: 05/20/20 15:00 Last Admin: 05/20/20 15:40 Dose: 3 ml Documented by: Digoxin (Lanoxin) 500 mcg IVPUSH ONETIME ONE Stop: 05/20/20 14:59 Last Admin: 05/20/20 15:39 Dose: 500 mcg Documented by: Diltiazem HCl (Diltiazem) 10 mg IVPUSH ONETIME ONE Stop: 05/20/20 23:56 Last Admin: 05/21/20 00:10 Dose: 10 mg Documented by: Furosemide (Lasix) 40 mg IVPUSH ONETIME ONE Stop: 05/20/20 15:20 Last Admin: 05/20/20 15:43 Dose: 40 mg Documented by: Sodium Chloride (Normal Saline) 100 mls @ 3 mls/sec IV ASDIRECTED [facility] Stop: 05/20/20 19:00 Last Admin: 05/20/20 18:40 Dose: 3 mls/sec Documented by: Levofloxacin/Dextrose 750 mg/ (Premix) 150 mls @ 100 mls/hr IV Q24H [facility] Last Admin: 05/20/20 17:27 Dose: 100 mls/hr Documented by: Diltiazem HCl 100 mg/ Sodium (Chloride) 100 mls @ 5 mls/hr IV TITRATE [facility]; Protocol Last Admin: 05/21/20 00:16 Dose: 5 mg/hr, 5 mls/hr Documented by: Iopamidol (Isovue-300 (61%)) 100 ml IV . DIRECTED [facility] Stop: 05/20/20 19:00 Iopamidol (Isovue-370 (76%)) 100 ml IV . DIRECTED [facility] Stop: 05/20/20 21:00 Last Admin: 05/20/20 18:40 Dose: 100 ml Documented by: Sodium Chloride (Saline Flush) 10 ml FLUSH ASDIRECTED PRN PRN Reason: Keep Vein Open Sodium Chloride (Saline Flush) 10 ml FLUSH ONETIME ONE Stop: 05/20/20 15:43 Last Admin: 05/20/20 15:56 Dose: 10 ml Documented by: - Exam General: Alert, Oriented, Cooperative, Mild Distress Lungs: Decreased Breath Sounds, Wheezing. No: Crackles, Rales, Rhonchi Cardiovascular: Regular Rate, No Murmurs, Irregular Rhythm GI/Abdominal Exam: Soft, Non-Tender, No Organomegaly, No Distention Extremities: Non-Tender, No Pedal Edema Sepsis Event Note - Evaluation Sepsis Screening Result: No Definite Risk - Focused Exam Vital Signs: Vital Signs Temp Pulse Resp BP Pulse Ox 05/21/20 09:00 82 20 118/46 L 87 L 05/21/20 08:00 87 20 112/52 L 89 L 05/21/20 07:42 97.7 F 86 20 118/58 L 92 L 05/21/20 07:11 99 05/21/20 06:00 19 124/61 89 L 05/21/20 05:00 21 H 122/50 L 89 L 05/21/20 04:00 97.9 F 22 H 122/62 91 L 05/21/20 03:00 18 121/71 86 L 05/21/20 02:00 16 126/71 91 L 05/21/20 01:00 98.4 F 18 135/69 91 L 05/20/20 23:51 22 H 137/92 H 88 L 05/20/20 23:00 13 142/70 H 90 L 05/20/20 22:00 22 H 137/80 91 L - Problem List Review Problem List Initiated/Reviewed/Updated: Yes - My Orders Last 24 Hours: My Active Orders 05/20/20 Lunch 2 Gram Sodium Diet [DIET] 05/20/20 16:00 Piperacillin/Tazobactam/Dext [Zosyn in Dextrose Iso-Osmotic 3.375 GM/50 ML] 3.375 gm Premix Bag 1 bag IV Q6H methylPREDNISolone Sod Succ [Solu-MEDROL] 40 mg IVPUSH Q6H 05/20/20 16:11 BIPAP Adult [RT BiPAP/CPAP] [RC] ASDIRECTED 05/20/20 16:12 Resuscitation Status Routine 05/20/20 16:15 Lactobacillus Rhamnosus GG [Culturelle] 1 cap PO BID Blood Culture x2 Reflex Set [OM.PC] Urgent 05/20/20 16:20 CULTURE BLOOD [BC] Stat 05/20/20 16:25 CULTURE BLOOD [BC] Stat 05/20/20 16:41 Acetaminophen [TylenoL] 650 mg PO Q4H PRN Albuterol [Proventil Neb Soln] 2.5 mg NEB Q4H PRN Ondansetron [Zofran] 4 mg IV Q4H PRN Sodium Chloride 0.9% [Saline Flush] 10 ml FLUSH ASDIRECTED PRN polyethylene glycoL 3350 [MiraLAX] 17 gm PO DAILY PRN 05/20/20 16:41 Patient Status [ADT] Routine Ambulate [RC] QID Cardiac Monitoring [RC] Q6HR Height and Weight [RC] DAILY Intake and Output [RC] QSHIFT Notify Provider Vital Signs [RC] ASDIRECTED Oxygen Therapy [RC] PRN Pulse Oximetry [RC] CONTINUOUS RT Aerosol Therapy [RC] ASDIRECTED Up With Assistance [RC] ASDIRECTED Up to Chair [RC] QID VTE/DVT Education [RC] Per Unit Routine Vital Signs [RC] Q1H Saline Lock Insert [OM.PC] Routine 05/20/20 17:00 Albuterol/Ipratropium [DuoNeb 3.0-0.5 MG/3 ML] 3 ml NEB QIDRT Enoxaparin [Lovenox] 40 mg SUBCUT Q24H 05/20/20 22:00 Nystatin [Nystop] See Dose Instructions TOP QID 05/21/20 00:30 Sodium Chloride 0.9% [Normal Saline] 250 ml IV ASDIRECTED 05/21/20 07:30 Levothyroxine 112 mcg PO ACBREAKFAST 05/21/20 08:00 Echo Comp wo Cont [US] Urgent 05/21/20 08:43 COVID-19/FLU A+B/RSV [MOLEC] Stat 05/21/20 09:00 Aspirin [Halfprin] 81 mg PO DAILY Tamsulosin [Flomax] 0.8 mg PO DAILY atorvaSTATin [Lipitor] 40 mg PO DAILY 05/21/20 09:21 Diltiazem IR [Cardizem] 30 mg PO Q6HR 05/22/20 05:00 BASIC METABOLIC PANEL,BMP [CHEM] Timed 05/22/20 17:00 Levofloxacin/Dextrose 5%-Water [Levaquin in D5W 750 MG/150 ML] 750 mg Premix Bag 1 bag IV Q48H - Plan Plan:: ASSESSMENT AND PLAN 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 CT angiogram showed no evidence of pulmonary emboli, but did document bilateral pleural effusions and right lung infiltrate. -BiPAP and supplemental oxygen, maintain saturations in the range of 88 to 91% -Oral furosemide 40 mg daily -Nebulizer therapy with albuterol and DuoNebs -Solu-Medrol 40 mg IV every 6 hours -Blood cultures pending -Echocardiogram to assess for left ventricular function and valvular status -IV Zosyn and levofloxacin, pending culture results and CT scan RIGHT LUNG PNEUMONIA -Management as above COPD-probable exacerbation -Management as above ATRIAL FIBRILLATION WITH RAPID VENTRICULAR RESPONSE-remains in atrial fibrillation, rate well controlled with IV diltiazem -Incision to oral diltiazem 30 mg p.o. every 6 hours, transition to long-acting form tomorrow if tolerated -Echo as above -Consider long-term anticoagulation PALLIATIVE CARE-he does not want intubation or mechanical ventilation if he experiences further respiratory compromise. In the event of progressive respiratory failure he would like to be kept comfortable. MAINTENANCE ISSUES -DVT prophylaxis; Lovenox 40 mg subcu daily -GI prophylaxis; not indicated -Wynn catheter; not indicated -Nutrition; 2 g sodium diet -Nicotine dependence; not required CODE STATUS-DNR/DNI ADMISSION STATUS-patient will be admitted to inpatient status, expect at least a 2 night hospital stay for evaluation and management of problems as outlined above. At the time of this admission I do not reasonably expected evaluation and management of this problem will require more than a 96 hour hospital stay. DISPOSITION-anticipate discharge to home after the hospital stay.
[2020-05-21] MEDS ORDERED: Diltiazem IR 30 MG Tab PO SCH (10:00)
[2020-05-21 10:49] LABS: CORONAVIRUS COVID-19 NAA NEGATIVE (NEGATIVE)
[2020-05-21 12:22] VITALS: BP 115/55; PULSE 79
--- NOTE | 2020-05-21 13:52 | PCM.DCSUM1 ---
Discharge Summary - Hospital Course Brief History: Mr. Moreau is an 84-year-old gentleman who was admitted through the emergency department with hypoxia and hypercapnia secondary to bilateral pleural effusions, right lung pneumonia, COPD exacerbation, and atrial fibrillation with rapid ventricular response. - Discharge Data Discharge Date: 05/21/20 Discharge Disposition: DC/Tfer to Hospice - Home 50 Condition: Poor - Referral to Home Health Primary Care Physician: PCP None - Discharge Diagnosis/Problem(s) (1) Acute on chronic respiratory failure with hypoxia and hypercapnia SNOMED Code(s): 17189745728543 ICD Code: J96.21 - ACUTE AND CHRONIC RESPIRATORY FAILURE WITH HYPOXIA; J96.22 - ACUTE AND CHRONIC RESPIRATORY FAILURE WITH HYPERCAPNIA Status: Acute Current Visit: Yes (2) Pneumonia SNOMED Code(s): 036438374 ICD Code: J18.9 - PNEUMONIA, UNSPECIFIED ORGANISM Status: Acute Current Visit: Yes (3) Palliative care patient SNOMED Code(s): 588695218, 478636067 ICD Code: Z51.5 - ENCOUNTER FOR PALLIATIVE CARE Status: Acute Current Visit: Yes (4) Pleural effusion, bilateral SNOMED Code(s): 411207174 ICD Code: J90 - PLEURAL EFFUSION, NOT ELSEWHERE CLASSIFIED Status: Acute Current Visit: Yes (5) Atrial fibrillation with RVR SNOMED Code(s): 070193055259467 ICD Code: I48.91 - UNSPECIFIED ATRIAL FIBRILLATION Status: Acute Current Visit: Yes - Patient Summary/Data Hospital Course: Mr. Moreau is an 84-year-old gentleman who was admitted through the emergency department with increased shortness of breath secondary to acute on chronic hypoxic and hypercapnic respiratory failure. He has a known history of COPD and is on supplemental oxygen 3 L/min via nasal cannula at home. He reports that he has become progressively more short of breath over the last month but it has been significantly worse this week. He has had a productive cough but denies fever or chills. Because of severe shortness of breath today he presented to the emergency department for further evaluation and was brought in by EMS. On arrival he had good oxygenation on supplemental oxygen, but blood gases did show significant hypercapnia with associated respiratory acidosis. Chest x-ray shows hypoventilation with bilateral pleural effusions. He was also found to be in atrial fibrillation with rapid ventricular response and has no prior history of this that he is aware of. He has received IV furosemide and IV digoxin while in the emergency department. Follow-up blood gases show persistent although improved hypercapnia with an oxygen saturation of 88%. On admission CT scan angiogram of the chest was obtained which showed no evidence of pulmonary emboli but did document bilateral pleural effusions of moderate size as well as a right lung infiltrate consistent with pneumonia. Blood cultures were obtained on admission and he was started on IV antibiotic therapy with Zosyn and levofloxacin. Is placed on noninvasive positive pressure ventilation and over the next 16 hours did have good improvement in respiratory status with almost total resolution of hypercapnia. He remained in atrial fibrillation with rapid ventricular response and this did not improve with improvement in respiratory status. He was given a bolus dose of diltiazem 10 mg and started on a continuous infusion at 5 mg/h. This did result in good rate control of his atrial fibrillation. On the morning after admission echocardiogram was obtained which did show preserved left ventricular systolic function there was right ventricular enlargement and left ventricular hypertrophy. Preliminary echocardiogram report does not mention diastolic dysfunction. On the morning after admission he was fairly adamant about not using BiPAP any further and he requested that he be discharged home. We discussed ongoing options for management, he feels that his quality of life is very poor and requested hospice admission after discharge. He would like comfort measures but no further aggressive interventions. Per his request he will be discharged home this afternoon with hospice admission after discharge. Activity will be as tolerated and he will resume his usual diet. Morphine and lorazepam prescriptions were ordered as needed for comfort. - Patient Instructions Diet: Usual Diet as Tolerated Activity: As Tolerated Other/Special Instructions: Admit to hospice after discharge from the hospital. - Discharge Plan *PRESCRIPTION DRUG MONITORING PROGRAM REVIEWED*: Not Applicable *COPY OF PRESCRIPTION DRUG MONITORING REPORT IN PATIENT LARA: Not Applicable Prescriptions/Med Rec: Diltiazem HCl [Diltiazem 24Hr ER] 120 mg PO DAILY #30 cap.er.24h LORazepam [LORazepam Intensol] 0.5 mg BUCCAL Q2H PRN #15 ml PRN Reason: Anxiety Morphine [Morphine 10 MG/5 ML] 5 mg PO Q1H PRN #15 ml PRN Reason: Dyspnea Home Medications: Home Meds Aspirin [Ecotrin EC] 81 mg PO DAILY 05/11/14 [History] Levothyroxine 112 mcg PO ACBRK 05/11/14 [History] Tamsulosin [Flomax] 0.8 mg PO DAILY 05/20/20 [History] Diltiazem HCl [Diltiazem 24Hr ER] 120 mg PO DAILY #30 cap.er.24h 05/21/20 [Rx] LORazepam [LORazepam Intensol] 0.5 mg BUCCAL Q2H PRN #15 ml 05/21/20 [Rx] Morphine [Morphine 10 MG/5 ML] 5 mg PO Q1H PRN #15 ml 05/21/20 [Rx] Referrals: PCP,None [Primary Care Provider] - - Discharge Summary/Plan Comment DC Time >30 min.: No - Patient Data Vitals - Most Recent: Last Vital Signs Temp 97.7 F 05/21/20 07:42 Pulse 79 05/21/20 12:00 Resp 19 05/21/20 12:00 BP 115/55 L 05/21/20 12:00 Pulse Ox 95 05/21/20 12:00 Weight - Most Recent: 229 lb 0.964 oz I&O - Last 24 hours: Intake & Output 05/20/20 05/21/20 05/21/20 22:59 06:59 14:59 Intake Total 120 575 960 Output Total 220 525 Balance 120 355 435 Lab Results - Last 24 hrs: Laboratory Results - last 24 hr 05/20/20 05/20/20 05/20/20 Range/Units 06:33 14:38 14:40 WBC 10.7 (4.5-11.0) K/uL RBC 5.00 (4.30-5.90) M/uL Hgb 14.3 D (12.0-15.0) g/dL Hct 47.3 (40.0-54.0) % MCV 95 (80-98) fL MCH 29 (27-31) pg MCHC 30 L (32-36) % Plt Count 311 (150-400) K/uL Neut % (Auto) (36-66) % Lymph % (Auto) (24-44) % Imperial % (Auto) (2-6) % Eos % (Auto) (2-4) % Baso % (Auto) (0-1) % D-Dimer, Quantitative (0.0-500.0) ng/mL Puncture Site Lt radial Lt.radial ABG pH 7.350 7.261 L (7.350-7.450) ABG pCO2 65.6 H 80.3 H* (35.0-42.0) mmHg ABG pO2 58.0 L 70.8 L (75.0-100.0) mmHg ABG HCO3 35.3 H 34.9 H (22.0-26.0) mmol/L ABG Total CO2 31.7 H 31.8 H (23.0-27.0) mmol/L ABG O2 Saturation 89.1 L 91.4 L (95.0-98.0) % ABG O2 Content 16.6 18.0 (15.0-23.0) %vol ABG Base Excess 7.7 5.1 mm/L ABG Hemoglobin 13.6 14.3 (13.5-18.0) g/dL ABG Oxyhemoglobin 87.1 89.5 % ABG Carboxyhemoglobin 1.4 1.2 (0.0-1.6) % ABG Methemoglobin 0.9 0.9 % Christiano Test Passed Passed O2 Delivery Device Bipap Non rebr mask Oxygen Flow Rate 30.0 3.0 L Sodium (140-148) mmol/L Potassium (3.6-5.2) mmol/L Chloride (100-108) mmol/L Carbon Dioxide (21-32) mmol/L Anion Gap (5.0-14.0) mmol/L BUN (7-18) mg/dL Creatinine (0.8-1.3) mg/dL Est Cr Clr Drug Dosing Estimated GFR (MDRD) (>60) Glucose (74-106) mg/dL Calcium (8.5-10.1) mg/dL Magnesium (1.8-2.4) mg/dL Total Bilirubin (0.2-1.0) mg/dL AST (15-37) U/L ALT (12-78) U/L Alkaline Phosphatase (46-116) U/L Troponin I (0.000-0.056) ng/mL NT-Pro-B Natriuret Pep (5-450) pg/mL Total Protein (6.4-8.2) g/dL Albumin (3.4-5.0) g/dL Globulin (2.3-3.5) g/dL Albumin/Globulin Ratio (1.2-2.2) Digoxin (0.90-2.00) ng/mL Influenza Type A RNA (NEGATIVE) RSV RNA (INAAT) (NEGATIVE) Influenza Type B RNA (NEGATIVE) SARS-CoV-2 RNA (ANTONY) (NEGATIVE) SARS CoV-2 RNA Rapid ANTONY 05/20/20 05/20/20 05/20/20 Range/Units 14:40 14:50 15:00 WBC (4.5-11.0) K/uL RBC (4.30-5.90) M/uL Hgb (12.0-15.0) g/dL Hct (40.0-54.0) % MCV (80-98) fL MCH (27-31) pg MCHC (32-36) % Plt Count (150-400) K/uL Neut % (Auto) (36-66) % Lymph % (Auto) (24-44) % Imperial % (Auto) (2-6) % Eos % (Auto) (2-4) % Baso % (Auto) (0-1) % D-Dimer, Quantitative 2125.48 H (0.0-500.0) ng/mL Puncture Site ABG pH (7.350-7.450) ABG pCO2 (35.0-42.0) mmHg ABG pO2 (75.0-100.0) mmHg ABG HCO3 (22.0-26.0) mmol/L ABG Total CO2 (23.0-27.0) mmol/L ABG O2 Saturation (95.0-98.0) % ABG O2 Content (15.0-23.0) %vol ABG Base Excess mm/L ABG Hemoglobin (13.5-18.0) g/dL ABG Oxyhemoglobin % ABG Carboxyhemoglobin (0.0-1.6) % ABG Methemoglobin % Christiano Test O2 Delivery Device Oxygen Flow Rate L Sodium 137 L (140-148) mmol/L Potassium 4.6 (3.6-5.2) mmol/L Chloride 98 L (100-108) mmol/L Carbon Dioxide 34 H (21-32) mmol/L Anion Gap 9.6 (5.0-14.0) mmol/L BUN 17 (7-18) mg/dL Creatinine 1.2 (0.8-1.3) mg/dL Est Cr Clr Drug Dosing TNP Estimated GFR (MDRD) 58 L (>60) Glucose 155 H (74-106) mg/dL Calcium 8.2 L (8.5-10.1) mg/dL Magnesium (1.8-2.4) mg/dL Total Bilirubin (0.2-1.0) mg/dL AST (15-37) U/L ALT (12-78) U/L Alkaline Phosphatase (46-116) U/L Troponin I < 0.017 (0.000-0.056) ng/mL NT-Pro-B Natriuret Pep 4717 H (5-450) pg/mL Total Protein (6.4-8.2) g/dL Albumin (3.4-5.0) g/dL Globulin (2.3-3.5) g/dL Albumin/Globulin Ratio (1.2-2.2) Digoxin (0.90-2.00) ng/mL Influenza Type A RNA (NEGATIVE) RSV RNA (INAAT) (NEGATIVE) Influenza Type B RNA (NEGATIVE) SARS-CoV-2 RNA (ANTONY) (NEGATIVE) SARS CoV-2 RNA Rapid ANTONY Negative 05/20/20 05/21/20 05/21/20 Range/Units 15:35 05:35 05:35 WBC 4.9 (4.5-11.0) K/uL RBC 4.53 (4.30-5.90) M/uL Hgb 13.3 (12.0-15.0) g/dL Hct 42.3 (40.0-54.0) % MCV 93 (80-98) fL MCH 29 (27-31) pg MCHC 31 L (32-36) % Plt Count 259 (150-400) K/uL Neut % (Auto) 93 H (36-66) % Lymph % (Auto) 6 L (24-44) % Imperial % (Auto) 1 L (2-6) % Eos % (Auto) 0 L (2-4) % Baso % (Auto) 0 (0-1) % D-Dimer, Quantitative (0.0-500.0) ng/mL Puncture Site Rt.radial ABG pH 7.278 L (7.350-7.450) ABG pCO2 73.9 H* (35.0-42.0) mmHg ABG pO2 52.8 L (75.0-100.0) mmHg ABG HCO3 33.5 H (22.0-26.0) mmol/L ABG Total CO2 30.4 H (23.0-27.0) mmol/L ABG O2 Saturation 82.6 L (95.0-98.0) % ABG O2 Content 16.1 (15.0-23.0) %vol ABG Base Excess 4.4 mm/L ABG Hemoglobin 14.2 (13.5-18.0) g/dL ABG Oxyhemoglobin 80.8 % ABG Carboxyhemoglobin 1.4 (0.0-1.6) % ABG Methemoglobin 0.8 % Christiano Test Passed O2 Delivery Device Nasal cannula Oxygen Flow Rate 3.0 L Sodium (140-148) mmol/L Potassium (3.6-5.2) mmol/L Chloride (100-108) mmol/L Carbon Dioxide (21-32) mmol/L Anion Gap (5.0-14.0) mmol/L BUN (7-18) mg/dL Creatinine (0.8-1.3) mg/dL Est Cr Clr Drug Dosing Estimated GFR (MDRD) (>60) Glucose (74-106) mg/dL Calcium (8.5-10.1) mg/dL Magnesium (1.8-2.4) mg/dL Total Bilirubin (0.2-1.0) mg/dL AST (15-37) U/L ALT (12-78) U/L Alkaline Phosphatase (46-116) U/L Troponin I (0.000-0.056) ng/mL NT-Pro-B Natriuret Pep (5-450) pg/mL Total Protein (6.4-8.2) g/dL Albumin (3.4-5.0) g/dL Globulin (2.3-3.5) g/dL Albumin/Globulin Ratio (1.2-2.2) Digoxin 1.12 (0.90-2.00) ng/mL Influenza Type A RNA (NEGATIVE) RSV RNA (INAAT) (NEGATIVE) Influenza Type B RNA (NEGATIVE) SARS-CoV-2 RNA (ANTONY) (NEGATIVE) SARS CoV-2 RNA Rapid ANTONY 05/21/20 05/21/20 05/21/20 Range/Units 05:35 06:33 08:43 WBC (4.5-11.0) K/uL RBC (4.30-5.90) M/uL Hgb (12.0-15.0) g/dL Hct (40.0-54.0) % MCV (80-98) fL MCH (27-31) pg MCHC (32-36) % Plt Count (150-400) K/uL Neut % (Auto) (36-66) % Lymph % (Auto) (24-44) % Imperial % (Auto) (2-6) % Eos % (Auto) (2-4) % Baso % (Auto) (0-1) % D-Dimer, Quantitative (0.0-500.0) ng/mL Puncture Site L radial ABG pH 7.463 H (7.350-7.450) ABG pCO2 44.5 H (35.0-42.0) mmHg ABG pO2 55.7 L (75.0-100.0) mmHg ABG HCO3 31.4 H (22.0-26.0) mmol/L ABG Total CO2 27.6 H (23.0-27.0) mmol/L ABG O2 Saturation 90.8 L (95.0-98.0) % ABG O2 Content 16.7 (15.0-23.0) %vol ABG Base Excess 7.1 mm/L ABG Hemoglobin 13.5 (13.5-18.0) g/dL ABG Oxyhemoglobin 88.2 % ABG Carboxyhemoglobin 2.0 H (0.0-1.6) % ABG Methemoglobin 0.9 % Christiano Test Pass O2 Delivery Device Nasal cannula Oxygen Flow Rate 3.0 L Sodium 137 L (140-148) mmol/L Potassium 4.6 (3.6-5.2) mmol/L Chloride 98 L (100-108) mmol/L Carbon Dioxide 30 (21-32) mmol/L Anion Gap 13.6 (5.0-14.0) mmol/L BUN 16 (7-18) mg/dL Creatinine 1.4 H (0.8-1.3) mg/dL Est Cr Clr Drug Dosing 34.12 Estimated GFR (MDRD) 48 L (>60) Glucose 145 H (74-106) mg/dL Calcium 8.0 L (8.5-10.1) mg/dL Magnesium 2.4 (1.8-2.4) mg/dL Total Bilirubin 0.7 (0.2-1.0) mg/dL AST 10 L (15-37) U/L ALT 21 (12-78) U/L Alkaline Phosphatase 73 (46-116) U/L Troponin I (0.000-0.056) ng/mL NT-Pro-B Natriuret Pep (5-450) pg/mL Total Protein 6.5 (6.4-8.2) g/dL Albumin 2.8 L (3.4-5.0) g/dL Globulin 3.7 H (2.3-3.5) g/dL Albumin/Globulin Ratio 0.8 L (1.2-2.2) Digoxin (0.90-2.00) ng/mL Influenza Type A RNA Negative (NEGATIVE) RSV RNA (INAAT) Negative (NEGATIVE) Influenza Type B RNA Negative (NEGATIVE) SARS-CoV-2 RNA (ANTONY) Negative (NEGATIVE) SARS CoV-2 RNA Rapid ANTONY Med Orders - Current: Current Medications Acetaminophen (Tylenol) 650 mg PO Q4H PRN PRN Reason: Pain (Mild 1-3)/fever Albuterol (Proventil Neb Soln) 2.5 mg NEB Q4H PRN PRN Reason: Shortness Of Breath/wheezing Last Admin: 05/21/20 00:46 Dose: 2.5 mg Documented by: Albuterol/Ipratropium (Duoneb 3.0-0.5 Mg/3 Ml) 3 ml NEB QIDRT [facility] Last Admin: 05/21/20 10:39 Dose: 3 ml Documented by: Aspirin (Halfprin) 81 mg PO DAILY [facility] Last Admin: 05/21/20 08:12 Dose: 81 mg Documented by: Atorvastatin Calcium (Lipitor) 40 mg PO DAILY [facility] Last Admin: 05/21/20 08:12 Dose: 40 mg Documented by: Diltiazem HCl (Cardizem) 30 mg PO Q6H [facility] Last Admin: 05/21/20 09:51 Dose: 30 mg Documented by: Enoxaparin Sodium (Lovenox) 40 mg SUBCUT Q24H [facility] Last Admin: 05/20/20 17:27 Dose: 40 mg Documented by: Piperacillin/Tazobactam/ (Dextrose 3.375 gm/ Premix) 50 mls @ 100 mls/hr IV Q6H [facility] Last Admin: 05/21/20 09:52 Dose: 100 mls/hr Documented by: Sodium Chloride (Normal Saline) 250 mls @ 15 mls/hr IV ASDIRECTED [facility] Last Admin: 05/21/20 00:50 Dose: 15 mls/hr Documented by: Levofloxacin/Dextrose 750 mg/ (Premix) 150 mls @ 100 mls/hr IV Q48H [facility] Lactobacillus Rhamnosus (Culturelle) 1 cap PO BID [facility] Last Admin: 05/21/20 08:12 Dose: 1 cap Documented by: Levothyroxine Sodium (Levothyroxine) 112 mcg PO ACBREAKFAST [facility] Last Admin: 05/21/20 08:12 Dose: 112 mcg Documented by: Methylprednisolone Sodium Succinate (Solu-Medrol) 40 mg IVPUSH Q6H [facility] Last Admin: 05/21/20 10:07 Dose: 40 mg Documented by: Nystatin (Nystop) 0 gm TOP QID [facility] Last Admin: 05/21/20 09:52 Dose: 1 gm Documented by: Ondansetron HCl (Zofran) 4 mg IV Q4H PRN PRN Reason: Nausea/Vomiting Polyethylene Glycol (Miralax) 17 gm PO DAILY PRN PRN Reason: Constipation Sodium Chloride (Saline Flush) 10 ml FLUSH ASDIRECTED PRN PRN Reason: Keep Vein Open Last Admin: 05/20/20 18:40 Dose: 10 ml Documented by: Tamsulosin HCl (Flomax) 0.8 mg PO DAILY [facility] Last Admin: 05/21/20 08:12 Dose: 0.8 mg Documented by: Discontinued Medications Albuterol/Ipratropium (Duoneb 3.0-0.5 Mg/3 Ml) 3 ml NEB ONETIME ONE Stop: 05/20/20 15:00 Last Admin: 05/20/20 15:40 Dose: 3 ml Documented by: Digoxin (Lanoxin) 500 mcg IVPUSH ONETIME ONE Stop: 05/20/20 14:59 Last Admin: 05/20/20 15:39 Dose: 500 mcg Documented by: Diltiazem HCl (Diltiazem) 10 mg IVPUSH ONETIME ONE Stop: 05/20/20 23:56 Last Admin: 05/21/20 00:10 Dose: 10 mg Documented by: Furosemide (Lasix) 40 mg IVPUSH ONETIME ONE Stop: 05/20/20 15:20 Last Admin: 05/20/20 15:43 Dose: 40 mg Documented by: Sodium Chloride (Normal Saline) 100 mls @ 3 mls/sec IV ASDIRECTED [facility] Stop: 05/20/20 19:00 Last Admin: 05/20/20 18:40 Dose: 3 mls/sec Documented by: Levofloxacin/Dextrose 750 mg/ (Premix) 150 mls @ 100 mls/hr IV Q24H [facility] Last Admin: 05/20/20 17:27 Dose: 100 mls/hr Documented by: Diltiazem HCl 100 mg/ Sodium (Chloride) 100 mls @ 5 mls/hr IV TITRATE [facility]; Protocol Last Admin: 05/21/20 00:16 Dose: 5 mg/hr, 5 mls/hr Documented by: Iopamidol (Isovue-300 (61%)) 100 ml IV . DIRECTED [facility] Stop: 05/20/20 19:00 Iopamidol (Isovue-370 (76%)) 100 ml IV . DIRECTED [facility] Stop: 05/20/20 21:00 Last Admin: 05/20/20 18:40 Dose: 100 ml Documented by: Sodium Chloride (Saline Flush) 10 ml FLUSH ASDIRECTED PRN PRN Reason: Keep Vein Open Sodium Chloride (Saline Flush) 10 ml FLUSH ONETIME ONE Stop: 05/20/20 15:43 Last Admin: 05/20/20 15:56 Dose: 10 ml Documented by: - Exam Quality Assessment: Reports: Supplemental Oxygen, DVT Prophylaxis General: Reports: Alert, Oriented, Cooperative, Moderate Distress Lungs: Reports: Decreased Breath Sounds, Rhonchi, Wheezing. Denies: Crackles, Rales Cardiovascular: Reports: Regular Rate, Irregular Rhythm, Murmurs GI/Abdominal Exam: Soft, Non-Tender, No Organomegaly, No Distention Extremities: Non-Tender, No Pedal Edema
[2020-05-22] MEDS ORDERED: Levofloxacin/Dextrose 5%-Water 750 MG in Premix Bag 1 BAG IV SCH (17:00)
== END 2020-05-21 14:24 | disposition hospice, home (50) | DRG 193 ==
LOC: JP.ED 14:27 → JP.ICU 15:38
PROVIDERS: ADMIT Hospitalist; ATTEND Hospitalist
PROC: 5A09457 Assistance with Respiratory Ventilation, 24-96 Consecutive Hours, Continuous Positive Airway Pressure (ICD-10-PCS; principal; 2020-05-20)
DX: J18.9 Pneumonia, unspecified organism (principal); R09.02 Hypoxemia; J96.21 Acute and chronic respiratory failure with hypoxia; J96.22 Acute and chronic respiratory failure with hypercapnia; J90 Pleural effusion, not elsewhere classified; I10 Essential (primary) hypertension; J44.0 Chronic obstructive pulmonary disease with (acute) lower respiratory infection; J44.1 Chronic obstructive pulmonary disease with (acute) exacerbation; E87.2 Acidosis; Z51.5 Encounter for palliative care; I48.91 Unspecified atrial fibrillation; Z20.822 Contact with and (suspected) exposure to COVID-19; M54.9 Dorsalgia, unspecified; G89.29 Other chronic pain; M10.9 Gout, unspecified; E07.9 Disorder of thyroid, unspecified; E78.00 Pure hypercholesterolemia, unspecified; H54.7 Unspecified visual loss; F32.9 Major depressive disorder, single episode, unspecified; E03.9 Hypothyroidism, unspecified; J98.01 Acute bronchospasm; Z66 Do not resuscitate; Z99.81 Dependence on supplemental oxygen; Z91.030 Bee allergy status; Z87.891 Personal history of nicotine dependence; Z79.82 Long term (current) use of aspirin; Z79.890 Hormone replacement therapy; Z79.899 Other long term (current) drug therapy; Z86.73 Personal history of transient ischemic attack (TIA), and cerebral infarction without residual deficits
CPT/HCPCS: 0241U; 36415; 36600; 71045; 71045-26; 71275; 80048; 80053; 80162; 82803; 83735; 83880; 84484; 85025; 85027; 85379; 87040; 93005; 93306; 94640; 94660; 99223; 99238; 99285; 99285-25; A9270-GY; J1160; J1650; J1940; J1956; J2543; J2920; J3490; J7050; J7620-GY; Q9967; U0002